=== PATIENT | male | born 1955 | race African-American/Black ===

== ENCOUNTER 2017-03-18 04:00 | Emergency (ER) | payer MEDICAID, OTHER ==
[2017-03-18] MEDS ORDERED: Ketorolac 60 MG/2 ML SDV IM ONE (04:17)
[2017-03-18] MEDS ORDERED: Doxycycline 100 MG Cap PO ONE (04:18)
[2017-03-18] MEDS ORDERED: Ketorolac 60 MG/2 ML SDV ONE (04:20)
--- NOTE | 2017-03-18 04:53 | EDM.PDOC ---
ED HPI GENERAL MEDICAL PROBLEM - General Chief Complaint: Skin Complaint Stated Complaint: BACK PAIN Time Seen by Provider: 03/18/17 04:25 Source of Information: Reports: Patient History Limitations: Reports: No Limitations - History of Present Illness INITIAL COMMENTS - FREE TEXT/NARRATIVE: HISTORY AND PHYSICAL: History of present illness: [61-year-old male Now presents emergency department complaining of pilonidal cyst. Patient has a long history of intermittent pilonidal cysts. This is been evolving over several days. Patient has no fevers chills sweats or shaking chills. He does not want any attempt to drain it but instead is requesting antibiotic treatment as he says this usually helps resolve. No headache or stiff neck no chest pain or shortness of breath patient has no other complaints Review of systems: As per history of present illness and below otherwise all systems reviewed and negative. Past medical history: As per history of present illness and as reviewed below otherwise noncontributory. Surgical history: As per history of present illness and as reviewed below otherwise noncontributory. Social history: No reported history of drug or alcohol abuse. Family history: As per history of present illness and as reviewed below otherwise noncontributory. Physical exam: Well-appearing 61-year-old male no acute distress. Area of soft tissue tenderness left upper gluteal cleft margin no fluctuance or crepitus. No erythema or warmth. HEENT: Normocephalic, atraumatic, pupils normal and symmetrical, supple neck, no meningismus, normal color Lungs: Normal and symmetrical chest wall excursion bilateral with no tachypnea or increased work of breathing, grossly normal chest exam Heart: No tachycardia in triage Abdomen: Normal-appearing, nondistended, no visible mass or asymmetry Pelvis: Normal-appearing Genitourinary: Deferred Rectal exam: Deferred Extremities: Atraumatic, normal use and range of motion, no visible evidence of gross neurovascular compromise Neuro: Awake, alert, oriented. Normal and appropriate mental status. Cranial nerves grossly unremarkable. Motor function normal. Nonfocal neurologic exam. Diagnostics: [] Therapeutics: [Toradol given IM doxycycline administered by mouth] Impression: [Pilonidal cyst] Plan: [Patient with pilonidal cyst. He is refusing any incision and drainage but she does not think this is necessary and states he typically does well with antibiotics and soaks. Doxycycline administered in ED and prescription dispensed. Patient aware to follow-up with primary care doctor in one to 2 days for reevaluation and to arrange surgical treatment this becomes necessary. He agrees with outpatient follow-up and strict return precautions given] Definitive disposition and diagnosis as appropriate pending reevaluation and review of above. Sacral Pain Score (Numeric/FACES): 8 - Related Data Allergies Allergy/AdvReac Type Severity Reaction Status Date / Time No Known Allergies Allergy Verified 03/18/17 04:16 Home Meds: Home Meds Aspirin [Low Dose Aspirin EC] 81 mg PO BEDTIME 08/25/14 [History] Aspirin 325 mg PO DAILY 03/18/17 [History] Carbidopa/Levodopa [Sinemet 10-100 mg] 0 03/18/17 [History] Doxycycline [Vibramycin] 100 mg PO Q12HR #20 cap 03/18/17 [Rx] Past Medical History - Past Health History Medical/Surgical History: Denies Medical/Surgical History Cardiovascular History: Reports: High Cholesterol, Hypertension, [place] Gastrointestinal History: Reports: GERD Endocrine/Metabolic History: Reports: Diabetes, Type I Dermatologic History: Reports: Other (See Below) Other Dermatologic History: pilonital cysts Social & Family History - Family History Family Medical History: Noncontributory - Tobacco Use Smoking Status *Q: Light Tobacco Smoker Years of Tobacco use: 30 Packs/Tins Daily: 0.1 Used Tobacco, but Quit: No Second Hand Smoke Exposure: No - Caffeine Use Caffeine Use: Reports: Coffee, Soda, Tea Caffeine Use Comment: daily - Alcohol Use Days Per Week of Alcohol Use: 2 Number of Drinks Per Day: 2 Total Drinks Per Week: 4 - Recreational Drug Use Recreational Drug Use: Yes Drug Use in Last 12 Months: Yes Recreational Drug Type: Reports: Marijuana/Hashish Recreational Drug Use Frequency: Socially Recreational Drug Last Use: 2 days ago ED ROS GENERAL - Review of Systems Review Of Systems: See Below (History of present illness) ED EXAM, SKIN/RASH Exam: See Below (History of present illness) Course - Vital Signs Last Recorded V/S: Last Vital Signs Temp 36.6 C 03/18/17 05:04 Pulse 70 03/18/17 05:04 Resp 18 03/18/17 05:04 BP 160/92 H 03/18/17 05:04 Pulse Ox 98 03/18/17 05:04 - Orders/Labs/Meds Meds: Medications Discontinued Medications Generic Name Dose Route Start Last Admin Trade Name Mark PRN Reason Stop Dose Admin Doxycycline Hyclate 100 mg 03/18/17 04:18 03/18/17 04:27 Vibramycin PO 03/18/17 04:19 100 mg ONETIME ONE Administration Ketorolac Tromethamine 60 mg 03/18/17 04:17 03/18/17 04:22 Toradol IM 03/18/17 04:18 60 mg ONETIME ONE Administration Ketorolac Tromethamine Confirm 03/18/17 04:20 03/18/17 04:28 Toradol Administered 03/18/17 04:21 Not Given Dose 60 mg .ROUTE .STK-MED ONE Departure - Departure Time of Disposition: 04:50 Disposition: Home, Self-Care 01 Condition: Good Clinical Impression: Pilonidal cyst - Discharge Information Prescriptions: Doxycycline [Vibramycin] 100 mg PO Q12HR #20 cap Instructions: How to Take a Sitz Bath Referrals: PCP,None [Primary Care Provider] - Forms: ED Department Discharge Additional Instructions: As you know you have a pilonidal cyst. Do warm soaks and finish antibiotics as prescribed. Follow-up with your Dr. for reevaluation in one day and to arrange incision and drainage of this becomes necessary. Take ibuprofen 800 mg every 6 hours as well as Tylenol every 4 hours as needed for pain.
[2017-03-18 05:09] VITALS: BP 160/92
== END 2017-03-18 05:04 | disposition home or self-care (01) ==
LOC: MW.ED 04:00
DX: L05.91 Pilonidal cyst without abscess (principal); E78.00 Pure hypercholesterolemia, unspecified; I10 Essential (primary) hypertension; I25.2 Old myocardial infarction; K21.9 Gastro-esophageal reflux disease without esophagitis; E10.9 Type 1 diabetes mellitus without complications; F17.210 Nicotine dependence, cigarettes, uncomplicated; Z79.82 Long term (current) use of aspirin
CPT/HCPCS: 99282; A9270; J1885

== ENCOUNTER 2017-06-01 09:42 | Observation (INO) | payer MEDICAID ==
[2017-06-01] MEDS ORDERED: Sodium Chloride 0.9% 1,000 ML IV ONE (09:47)
[2017-06-01] MEDS ORDERED: Aspirin 81 MG Tab.Chew PO ONE (09:47)
--- NOTE | 2017-06-01 09:49 | EDM.PDOC ---
ED HPI GENERAL MEDICAL PROBLEM - General Stated Complaint: LEFT SIDE NUMBNESS Time Seen by Provider: 06/01/17 09:49 Source of Information: Reports: Patient - History of Present Illness INITIAL COMMENTS - FREE TEXT/NARRATIVE: HISTORY AND PHYSICAL: History of present illness: []Patient presents to emergency room by private vehicle Has complaint of left arm numbness and chest discomfort, he has significant cardiac history of previous ST elevation [place] in which he refused cardiac catheter on that occasion however he returned some months later in [facility] and was converted ultimately sent to [place] where ultimately cardiac catheter was performed. Today he is in no distress no shortness breath he complains of chest discomfort left arm numbness his blood pressure on arrival was in the 220s systolically as well as 120s diastolic, is provided nitroglycerin 2 doses which improved his symptoms to a 3 out of 10 pain his blood pressure to 160s systolically to 114 diastolic. Vasotec was also provided Currently no fever nausea vomiting chills sweats he still complains of left arm numbness Glucose significantly elevated at 600 on arrival IV normal saline provided along with insulin Review of systems: As per history of present illness and below otherwise all systems reviewed and negative. Past medical history: As per history of present illness and as reviewed below otherwise noncontributory. Surgical history: As per history of present illness and as reviewed below otherwise noncontributory. Social history: No reported history of drug or alcohol abuse. Family history: As per history of present illness and as reviewed below otherwise noncontributory. Physical exam: HEENT: Atraumatic, normocephalic, pupils reactive, negative for conjunctival pallor or scleral icterus, mucous membranes moist, throat clear, neck supple, nontender, trachea midline. Lungs: Clear to auscultation, breath sounds equal bilaterally, chest nontender. Heart: S1S2, regular, negative for clicks, rubs, or JVD. Abdomen: Soft, nondistended, nontender. Negative for masses or hepatosplenomegaly. Negative for costovertebral tenderness. Pelvis: Stable nontender. Genitourinary: Deferred. Rectal: Deferred. Extremities: Atraumatic, negative for cords or calf pain. Neurovascular unremarkable. Neuro: Awake, alert, oriented. Cranial nerves II through XII unremarkable. Cerebellum unremarkable. Motor and sensory unremarkable throughout. Exam nonfocal. Diagnostics: [Lab as below EKG Chest [address] no contrast ] Therapeutics: [Liter normal saline bolus Aspirin 324 mg chewable Sublingual nitroglycerin 0.4 every 5 when necessary 30 Vasotec 1.25 mg IV Insulin 10 units IV ] Impression: ACS Hypertensive emergency Hyperglycemia []Left arm numbness Hyperglycemia Significant cardiac history history with catheterization in the last 2 years, history of STEMI and V. fib Refused cardiac catheterization in the past ultimately was performed between one and 2 years prior Definitive disposition and diagnosis as appropriate pending reevaluation and review of above. chest Pain Score (Numeric/FACES): 10 - Related Data Allergies Allergy/AdvReac Type Severity Reaction Status Date / Time No Known Allergies Allergy Verified 06/01/17 10:20 Home Meds: Home Meds Aspirin [Low Dose Aspirin EC] 81 mg PO BEDTIME 08/25/14 [History] Aspirin 325 mg PO DAILY 03/18/17 [History] Carbidopa/Levodopa [Sinemet 10-100 mg] 0 03/18/17 [History] Doxycycline [Vibramycin] 100 mg PO Q12HR #20 cap 03/18/17 [Rx] Past Medical History - Past Health History Medical/Surgical History: Denies Medical/Surgical History Cardiovascular History: Reports: High Cholesterol, Hypertension, [place] Gastrointestinal History: Reports: GERD Endocrine/Metabolic History: Reports: Diabetes, Type I Dermatologic History: Reports: Other (See Below) Other Dermatologic History: pilonital cysts Social & Family History - Family History Family Medical History: Noncontributory - Tobacco Use Smoking Status *Q: Light Tobacco Smoker Years of Tobacco use: 30 Packs/Tins Daily: 0.1 Used Tobacco, but Quit: No Second Hand Smoke Exposure: No - Caffeine Use Caffeine Use: Reports: Coffee, Soda, Tea Caffeine Use Comment: daily - Alcohol Use Days Per Week of Alcohol Use: 2 Number of Drinks Per Day: 2 Total Drinks Per Week: 4 - Recreational Drug Use Recreational Drug Use: Yes Drug Use in Last 12 Months: Yes Recreational Drug Type: Reports: Marijuana/Hashish Recreational Drug Use Frequency: Socially Recreational Drug Last Use: 2 days ago ED ROS GENERAL - Review of Systems Review Of Systems: ROS reveals no pertinent complaints other than HPI. ED EXAM, GENERAL - Physical Exam Exam: See Below Course - Vital Signs Last Recorded V/S: Last Vital Signs Temp 98.6 F 06/01/17 10:00 Pulse 97 06/01/17 11:06 Resp 16 06/01/17 11:06 BP 164/114 H 06/01/17 11:06 Pulse Ox 97 06/01/17 11:06 - Orders/Labs/Meds Orders: Active Orders 24 hr Category Date Time Status EKG Documentation Completion [RC] STAT Care 06/01/17 10:28 Active Chest 1V Frontal [CR] Stat Exams 06/01/17 09:49 Taken Head wo Cont [CT] Stat Exams 06/01/17 10:45 Taken Nitroglycerin [Nitrostat] Med 06/01/17 10:08 Active 0.4 mg SL Q5M PRN Medication Orders Nitroglycerin (Nitrostat) 0.4 mg SL Q5M PRN PRN Reason: Chest Pain Last Admin: 06/01/17 10:11 Dose: 0.4 mg Labs: Laboratory Tests 06/01/17 06/01/17 06/01/17 Range/Units 10:02 10:02 10:02 WBC 6.17 (4.0-11.0) K/uL RBC 4.77 (4.50-5.90) M/uL Hgb 14.5 (13.0-17.0) g/dL Hct 42.7 (38.0-50.0) % MCV 89.5 (80.0-98.0) fL MCH 30.4 (27.0-32.0) pg MCHC 34.0 (31.0-37.0) g/dL RDW Std Deviation 44.9 (28.0-62.0) fl RDW Coeff of Arlet 14 (11.0-15.0) % Plt Count 226 (150-400) K/uL MPV 10.50 (7.40-12.00) fL Neut % (Auto) 55.4 (48.0-80.0) % Lymph % (Auto) 34.5 (16.0-40.0) % [place] % (Auto) 7.6 (0.0-15.0) % Eos % (Auto) 2.3 (0.0-7.0) % Baso % (Auto) 0.2 (0.0-1.5) % Neut # (Auto) 3.4 (1.4-5.7) K/uL Lymph # (Auto) 2.1 (0.6-2.4) K/uL [place] # (Auto) 0.5 (0.0-0.8) K/uL Eos # (Auto) 0.1 (0.0-0.7) K/uL Baso # (Auto) 0.0 (0.0-0.1) K/uL Nucleated RBC % 0.0 /100WBC Nucleated RBCs # 0 K/uL INR 1.05 (0.86-1.11) Sodium 133 L (136-146) mmol/L Potassium 3.8 (3.5-5.1) mmol/L Chloride 99 (98-110) mmol/L Carbon Dioxide 22 (21-31) mmol/L BUN 10 (6.0-23.0) mg/dL Creatinine 1.2 (0.6-1.5) mg/dL Est Cr Clr Drug Dosing 72.75 mL/min Estimated GFR (MDRD) > 60.0 ml/min Glucose 599 H* (60-110) mg/dL POC Glucose (60-110) mg/dL Calcium 9.9 (8.8-10.8) mg/dL Total Bilirubin 0.4 (0.1-1.5) mg/dL AST 37 (5-40) IU/L ALT 64 H (8-54) IU/L Alkaline Phosphatase 121 (40-150) Creatine Kinase 90 (9-236) IU/L CK-MB (CK-2) 1.7 (0-6.6) ng/ml Troponin I < 0.10 (0.0-0.29) NG/ML Total Protein 7.6 (6.0-8.0) g/dL Albumin 3.5 (3.5-5.0) g/dL Globulin 4.1 H (2.0-3.5) g/dL Albumin/Globulin Ratio 0.9 L (1.3-2.8) Urine Color Urine Appearance Urine pH (5.0-8.0) Ur Specific [place] (1.001-1.035) Urine Protein (NEGATIVE) mg/dL Urine Glucose (UA) (NEGATIVE) mg/dL Urine Ketones (NEGATIVE) mg/dL Urine Occult Blood (NEGATIVE) Urine Nitrite (NEGATIVE) Urine Bilirubin (NEGATIVE) Urine Urobilinogen (<2.0) EU/dL Ur Leukocyte Esterase (NEGATIVE) Urine RBC (0-2/HPF) Urine WBC (0-5/HPF) Ur Epithelial Cells (NONE-FEW) Urine Bacteria (NEGATIVE) 06/01/17 06/01/17 Range/Units 11:00 11:36 WBC (4.0-11.0) K/uL RBC (4.50-5.90) M/uL Hgb (13.0-17.0) g/dL Hct (38.0-50.0) % MCV (80.0-98.0) fL MCH (27.0-32.0) pg MCHC (31.0-37.0) g/dL RDW Std Deviation (28.0-62.0) fl RDW Coeff of Arlet (11.0-15.0) % Plt Count (150-400) K/uL MPV (7.40-12.00) fL Neut % (Auto) (48.0-80.0) % Lymph % (Auto) (16.0-40.0) % [place] % (Auto) (0.0-15.0) % Eos % (Auto) (0.0-7.0) % Baso % (Auto) (0.0-1.5) % Neut # (Auto) (1.4-5.7) K/uL Lymph # (Auto) (0.6-2.4) K/uL [place] # (Auto) (0.0-0.8) K/uL Eos # (Auto) (0.0-0.7) K/uL Baso # (Auto) (0.0-0.1) K/uL Nucleated RBC % /100WBC Nucleated RBCs # K/uL INR (0.86-1.11) Sodium (136-146) mmol/L Potassium (3.5-5.1) mmol/L Chloride (98-110) mmol/L Carbon Dioxide (21-31) mmol/L BUN (6.0-23.0) mg/dL Creatinine (0.6-1.5) mg/dL Est Cr Clr Drug Dosing mL/min Estimated GFR (MDRD) ml/min Glucose (60-110) mg/dL POC Glucose 290 H (60-110) mg/dL Calcium (8.8-10.8) mg/dL Total Bilirubin (0.1-1.5) mg/dL AST (5-40) IU/L ALT (8-54) IU/L Alkaline Phosphatase (40-150) Creatine Kinase (9-236) IU/L CK-MB (CK-2) (0-6.6) ng/ml Troponin I (0.0-0.29) NG/ML Total Protein (6.0-8.0) g/dL Albumin (3.5-5.0) g/dL Globulin (2.0-3.5) g/dL Albumin/Globulin Ratio (1.3-2.8) Urine Color YELLOW Urine Appearance CLEAR Urine pH 6.0 (5.0-8.0) Ur Specific [place] 1.010 (1.001-1.035) Urine Protein NEGATIVE (NEGATIVE) mg/dL Urine Glucose (UA) >=1000 (NEGATIVE) mg/dL Urine Ketones NEGATIVE (NEGATIVE) mg/dL Urine Occult Blood NEGATIVE (NEGATIVE) Urine Nitrite NEGATIVE (NEGATIVE) Urine Bilirubin NEGATIVE (NEGATIVE) Urine Urobilinogen 0.2 (<2.0) EU/dL Ur Leukocyte Esterase NEGATIVE (NEGATIVE) Urine RBC NONE SEEN (0-2/HPF) Urine WBC 0-1 (0-5/HPF) Ur Epithelial Cells RARE (NONE-FEW) Urine Bacteria RARE (NEGATIVE) Meds: Medications Generic Name Dose Route Start Last Admin Trade Name Mark PRN Reason Stop Dose Admin Nitroglycerin 0.4 mg 06/01/17 10:08 06/01/17 10:11 Nitrostat SL 0.4 mg Q5M PRN Administration Chest Pain Discontinued Medications Generic Name Dose Route Start Last Admin Trade Name Mark PRN Reason Stop Dose Admin Aspirin 324 mg 06/01/17 09:47 06/01/17 10:11 Aspirin PO 06/01/17 09:48 324 mg ONETIME ONE Administration Enalaprilat 1.25 mg 06/01/17 10:21 06/01/17 10:25 Vasotec Iv IVPUSH 06/01/17 10:22 1.25 mg ONETIME ONE Administration Sodium Chloride 1,000 mls @ 999 mls/hr 06/01/17 09:47 06/01/17 10:17 Normal Saline IV 06/01/17 10:47 999 mls/hr STAT ONE Administration Insulin Human Regular 10 unit 06/01/17 10:35 06/01/17 10:54 Novolin R IVPUSH 06/01/17 10:36 10 units ONETIME ONE Administration Protocol Insulin Human Regular 10 unit 06/01/17 10:38 06/01/17 10:56 Novolin R IVPUSH 06/01/17 10:39 Not Given ONETIME ONE Protocol Metoprolol Tartrate 5 mg 06/01/17 10:30 06/01/17 11:13 Lopressor IVPUSH 06/01/17 10:41 Not Given Q5M GORDON Nitroglycerin Confirm 06/01/17 10:08 06/01/17 10:16 Nitrostat Administered 06/01/17 10:09 0.4 mg Dose Administration 0.4 mg .ROUTE .STK-MED ONE Departure - Departure Time of Disposition: 11:53 Disposition: Home, Self-Care 01 Condition: Fair Clinical Impression: Acute coronary syndrome, Hypertensive emergency, Hyperglycemia - Discharge Information Referrals: PCP,Unknown [Primary Care Provider] - - My Orders Last 24 Hours: My Active Orders 06/01/17 09:49 Chest 1V Frontal [CR] Stat 06/01/17 10:08 Nitroglycerin [Nitrostat] 0.4 mg SL Q5M PRN 06/01/17 10:28 EKG Documentation Completion [RC] STAT 06/01/17 10:45 Head wo Cont [CT] Stat - Assessment/Plan Last 24 Hours: My Active Orders 06/01/17 09:49 Chest 1V Frontal [CR] Stat 06/01/17 10:08 Nitroglycerin [Nitrostat] 0.4 mg SL Q5M PRN 06/01/17 10:28 EKG Documentation Completion [RC] STAT 06/01/17 10:45 Head wo Cont [CT] Stat
[2017-06-01] MEDS ORDERED: Nitroglycerin 0.4 MG Tab.SL SL PRN (10:08)
[2017-06-01] MEDS ORDERED: Nitroglycerin 0.4 MG Tab.SL ONE (10:08)
[2017-06-01] MEDS ORDERED: Enalaprilat 1.25 MG/ML SDV IVPUSH ONE (10:21)
[2017-06-01 10:33] LABS: CHLORIDE,CL 99 mmol/L (98-110); SODIUM,NA 133 mmol/L (136-146)
[2017-06-01] MEDS ORDERED: Insulin Regular, Human 100 Units/ML 10 ML Vial IVPUSH ONE ×2 (10:35→10:38)
[2017-06-01] MEDS: Metoprolol Tartrate 5 MG/5 ML SDV IVPUSH SCH ×2 (11:12→11:13)
[2017-06-01] MEDS ORDERED: Morphine 2 MG/ML Syringe IVPUSH PRN (15:03)
[2017-06-01] MEDS ORDERED: Acetaminophen 325 MG Tab PO PRN (15:03)
[2017-06-01] MEDS ORDERED: Ondansetron 4 MG/2 ML SDV IVPUSH PRN (15:03)
--- NOTE | 2017-06-01 15:12 | PCM.HP ---
H&P History of Present Illness - History of Present Illness Initial Comments - Free Text/Narative: 61 yo male with pmh of HTN, DM, and CAD with STEMI three years ago. He is unemployed and stopped taking all his medications six months ago. He presents to the ED with chest pain. HE reports left shoulder pain for past week which radiates to the neck. It hurts to lift up his shoulder. Three days ago he developed chest pain that radiates to head and left arm. It is not associated with shortness of breath, diaphoresis, or lightheadedness. In the ED his troponin and EKG did not show signs of acute ischemia. His blood pressure was noted to be in the 200s systolic and blood sugar was over 500. He was given IV vasotec and 10 units of insulin. chest Pain Score (Numeric/FACES): 10 - Related Data Allergies/Adverse Reactions: Allergies Allergy/AdvReac Type Severity Reaction Status Date / Time No Known Allergies Allergy Verified 06/01/17 10:20 Home Medications: Home Meds . [No Known Home Meds] 06/01/17 [History] Past Medical History - Past Health History Medical/Surgical History: Denies Medical/Surgical History Cardiovascular History: Reports: High Cholesterol, Hypertension, [place] Gastrointestinal History: Reports: GERD Endocrine/Metabolic History: Reports: Diabetes, Type I Dermatologic History: Reports: Other (See Below) Other Dermatologic History: pilonital cysts - Past Surgical History Cardiovascular Surgical History: Reports: Coronary Artery Stent Social & Family History - Family History Family Medical History: Noncontributory - Tobacco Use Smoking Status *Q: Current Every Day Smoker Years of Tobacco use: 25 Packs/Tins Daily: 0.5 Used Tobacco, but Quit: No Second Hand Smoke Exposure: No - Caffeine Use Caffeine Use: Reports: Coffee, Soda, Tea Caffeine Use Comment: daily - Alcohol Use Days Per Week of Alcohol Use: 2 Number of Drinks Per Day: 2 Total Drinks Per Week: 4 - Recreational Drug Use Recreational Drug Use: Yes Drug Use in Last 12 Months: Yes Recreational Drug Type: Reports: Marijuana/Hashish Recreational Drug Use Frequency: Socially Recreational Drug Last Use: 2 days ago H&P Review of Systems - Review of Systems: Review Of Systems: ROS reveals no pertinent complaints other than HPI. Exam - Exam Exam: See Below - Vital Signs Vital Signs: Last Vital Signs Temp 36.6 C 06/01/17 12:36 Pulse 75 06/01/17 12:36 Resp 16 06/01/17 12:36 BP 142/85 H 06/01/17 12:36 Pulse Ox 98 06/01/17 12:36 Weight: 108.499 kg - Exam General: Alert, Oriented HEENT: Mucosa Moist & [place] Neck: No: JVD Lungs: Clear to Auscultation, Normal Respiratory Effort Cardiovascular: Regular Rate, Regular Rhythm GI/Abdominal Exam: Soft, Non-Tender, No Distention Extremities: No Pedal Edema, Other (pain on palpation of shoulder joint and para cervical muscles. limited left arm raise due to pain.) Skin: Warm, Dry, Intact Neurological: Cranial Nerves Intact. No: Focal Deficit - Patient Data Result Diagrams: 06/02/17 06:00 06/01/17 10:02 *Q Meaningful Use (ADM) - VTE *Q VTE Criteria *Q: - Stroke *Q Stroke Criteria *Q: - AMI *Q AMI Criteria *Q: Problem List Initiated/Reviewed/Updated: Yes Orders Last 24hrs: Active Orders 24 hr Category Date Time Status Antiembolic Devices [RC] PER UNIT ROUTINE Care 06/01/17 15:04 Ordered Oxygen Therapy [RC] PRN Care 06/01/17 15:03 Ordered Up ad Awilda [RC] ASDIRECTED Care 06/01/17 15:03 Ordered VTE/DVT Education [RC] PER UNIT ROUTINE Care 06/01/17 15:03 Ordered Vital Signs [RC] Q4H Care 06/01/17 15:03 Ordered [employer] Diet [DIET] Diet 06/01/17 Dinner Active Regular Diet [DIET] Diet 06/01/17 Breakfast Ordered TROPONIN I [CHEM] Q6H Lab 06/01/17 16:00 Ordered TROPONIN I [CHEM] Q6H Lab 06/01/17 22:00 Ordered Acetaminophen [Tylenol] Med 06/01/17 15:03 Ordered 650 mg PO Q4H PRN Aspirin Med 06/02/17 09:00 Ordered 325 mg PO DAILY Insulin Aspart [NovoLOG] Med 06/01/17 17:00 Active See Protocol SUBCUT TIDAC Lisinopril [Prinivil] Med 06/02/17 09:00 Ordered 20 mg PO DAILY Metoprolol Succinate [Toprol XL] Med 06/01/17 15:00 Ordered 50 mg PO DAILY Morphine Med 06/01/17 15:03 Ordered 2 mg IVPUSH Q3H PRN Ondansetron [Zofran] Med 06/01/17 15:03 Ordered 4 mg IVPUSH Q4H PRN atorvaSTATin [Lipitor] Med 06/01/17 21:00 Ordered 20 mg PO BEDTIME Sequential Compression Device [OM.PC] Per Unit Routine Oth 06/01/17 15:03 Ordered Resuscitation Status Routine Resus Stat 06/01/17 15:03 Ordered Medication Orders Acetaminophen (Tylenol) 650 mg PO Q4H PRN PRN Reason: Pain (Mild 1-3)/fever Aspirin (Aspirin) 325 mg PO DAILY GORDON Atorvastatin Calcium (Lipitor) 20 mg PO BEDTIME GORDON Insulin Aspart (Novolog) 0 unit SUBCUT TIDAC GORDON PRN Reason: Protocol Lisinopril (Prinivil) 20 mg PO DAILY GORDON Metoprolol Succinate (Toprol Xl) 50 mg PO DAILY GORDON Morphine Sulfate (Morphine) 2 mg IVPUSH Q3H PRN PRN Reason: Pain (severe 7-10) Stop: 06/02/17 15:04 Nitroglycerin (Nitrostat) 0.4 mg SL Q5M PRN PRN Reason: Chest Pain Last Admin: 06/01/17 10:11 Dose: 0.4 mg Ondansetron HCl (Zofran) 4 mg IVPUSH Q4H PRN PRN Reason: Nausea Assessment/Plan Comment:: 61 yo male admitted for chest pain with uncontrolled blood pressure and hyperglycemia. We will monitor on telemetry and trend cardiac enzymes. We will restart metoprolol, lisinopril and lipitor which he had been taking six months ago. We will place on diabetic diet with sliding scale novolog.
[2017-06-01] MEDS: Metoprolol Succinate 50 MG Tab.ER PO SCH (15:13)
[2017-06-01] MEDS ORDERED: Insulin Aspart 100 Units/ML 3 ML Pen SUBCUT SCH (17:00)
[2017-06-01] MEDS: Lisinopril 10 MG Tab PO SCH (20:58)
[2017-06-01] MEDS: oxyCODONE 5 MG Tab PO PRN (20:59)
[2017-06-01] MEDS: atorvaSTATin 20 MG Tab PO SCH (20:59)
[2017-06-01] MEDS: Insulin Aspart 100 Units/ML 3 ML Pen SUBCUT SCH (21:07)
[2017-06-02] MEDS: oxyCODONE 5 MG Tab PO PRN ×4 (06:23→21:21)
[2017-06-02] MEDS: Insulin Aspart 100 Units/ML 3 ML Pen SUBCUT SCH ×4 (07:41→21:04)
[2017-06-02] MEDS: Aspirin 325 MG Tab PO SCH (08:21)
[2017-06-02] MEDS: Metoprolol Succinate 50 MG Tab.ER PO SCH (08:21)
[2017-06-02] MEDS: Lisinopril 10 MG Tab PO SCH (08:22)
[2017-06-02] MEDS ORDERED: Lisinopril 10 MG Tab PO SCH (09:00)
[2017-06-02] MEDS ORDERED: Insulin Aspart 100 Units/ML 3 ML Pen SUBCUT ONE (11:27)
[2017-06-02 12:23] LABS: CHLORIDE,CL 104 mmol/L (98-110); SODIUM,NA 133 mmol/L (136-146)
--- NOTE | 2017-06-02 12:34 | PCM.PN ---
- Review of Systems Systems Review Comment:: denies chest pain, reports left shoulder pain - Patient Data Vitals - Most Recent: Last Vital Signs Temp 36.1 C 06/02/17 11:12 Pulse 68 06/02/17 11:12 Resp 20 06/02/17 11:12 BP 122/71 06/02/17 11:12 Pulse Ox 100 06/02/17 11:12 Weight - Most Recent: 108.499 kg I&O - Last 24 Hours: Intake & Output 06/01/17 06/02/17 06/02/17 22:59 06:59 14:59 Intake Total 970 1570 Output Total 500 1565 Balance 470 5 Lab Results Last 24 Hours: Laboratory Results - last 24 hr 06/01/17 06/01/17 06/01/17 Range/Units 15:47 16:48 21:03 WBC (4.0-11.0) K/uL RBC (4.50-5.90) M/uL Hgb (13.0-17.0) g/dL Hct (38.0-50.0) % MCV (80.0-98.0) fL MCH (27.0-32.0) pg MCHC (31.0-37.0) g/dL RDW Std Deviation (28.0-62.0) fl RDW Coeff of Arlet (11.0-15.0) % Plt Count (150-400) K/uL MPV (7.40-12.00) fL Neut % (Auto) (48.0-80.0) % Lymph % (Auto) (16.0-40.0) % Dickens % (Auto) (0.0-15.0) % Eos % (Auto) (0.0-7.0) % Baso % (Auto) (0.0-1.5) % Neut # (Auto) (1.4-5.7) K/uL Lymph # (Auto) (0.6-2.4) K/uL Dickens # (Auto) (0.0-0.8) K/uL Eos # (Auto) (0.0-0.7) K/uL Baso # (Auto) (0.0-0.1) K/uL Nucleated RBC % /100WBC Nucleated RBCs # K/uL POC Glucose 279 H 330 H (60-110) mg/dL Hemoglobin A1c (0.0-6.0) % Troponin I < 0.10 (0.0-0.29) NG/ML 06/01/17 06/02/17 06/02/17 Range/Units 21:59 06:00 06:00 WBC 6.99 (4.0-11.0) K/uL RBC 4.66 (4.50-5.90) M/uL Hgb 14.2 (13.0-17.0) g/dL Hct 41.4 (38.0-50.0) % MCV 88.8 (80.0-98.0) fL MCH 30.5 (27.0-32.0) pg MCHC 34.3 (31.0-37.0) g/dL RDW Std Deviation 44.4 (28.0-62.0) fl RDW Coeff of Arlet 14 (11.0-15.0) % Plt Count 229 (150-400) K/uL MPV 10.60 (7.40-12.00) fL Neut % (Auto) 45.1 L (48.0-80.0) % Lymph % (Auto) 45.1 H (16.0-40.0) % Dickens % (Auto) 6.3 (0.0-15.0) % Eos % (Auto) 3.1 (0.0-7.0) % Baso % (Auto) 0.4 (0.0-1.5) % Neut # (Auto) 3.2 (1.4-5.7) K/uL Lymph # (Auto) 3.2 H (0.6-2.4) K/uL Dickens # (Auto) 0.4 (0.0-0.8) K/uL Eos # (Auto) 0.2 (0.0-0.7) K/uL Baso # (Auto) 0.0 (0.0-0.1) K/uL Nucleated RBC % 0.0 /100WBC Nucleated RBCs # 0 K/uL POC Glucose (60-110) mg/dL Hemoglobin A1c 12.7 H (0.0-6.0) % Troponin I < 0.10 (0.0-0.29) NG/ML 06/02/17 06/02/17 Range/Units 06:17 11:22 WBC (4.0-11.0) K/uL RBC (4.50-5.90) M/uL Hgb (13.0-17.0) g/dL Hct (38.0-50.0) % MCV (80.0-98.0) fL MCH (27.0-32.0) pg MCHC (31.0-37.0) g/dL RDW Std Deviation (28.0-62.0) fl RDW Coeff of Arlet (11.0-15.0) % Plt Count (150-400) K/uL MPV (7.40-12.00) fL Neut % (Auto) (48.0-80.0) % Lymph % (Auto) (16.0-40.0) % Dickens % (Auto) (0.0-15.0) % Eos % (Auto) (0.0-7.0) % Baso % (Auto) (0.0-1.5) % Neut # (Auto) (1.4-5.7) K/uL Lymph # (Auto) (0.6-2.4) K/uL Dickens # (Auto) (0.0-0.8) K/uL Eos # (Auto) (0.0-0.7) K/uL Baso # (Auto) (0.0-0.1) K/uL Nucleated RBC % /100WBC Nucleated RBCs # K/uL POC Glucose 303 H 443 H (60-110) mg/dL Hemoglobin A1c (0.0-6.0) % Troponin I (0.0-0.29) NG/ML Med Orders - Current: Current Medications Acetaminophen (Tylenol) 650 mg PO Q4H PRN PRN Reason: Pain (Mild 1-3)/fever Last Admin: 06/01/17 20:12 Dose: 650 mg Aspirin (Aspirin) 325 mg PO DAILY [facility] Last Admin: 06/02/17 08:21 Dose: 325 mg Atorvastatin Calcium (Lipitor) 20 mg PO BEDTIME [facility] Last Admin: 06/01/17 20:59 Dose: 20 mg Insulin Aspart (Novolog) 0 unit SUBCUT ACBED [facility] PRN Reason: Protocol Last Admin: 06/02/17 11:34 Dose: Not Given Insulin Glargine (Lantus Solostar) 10 units SUBCUT DAILY [facility] Lisinopril (Prinivil) 20 mg PO DAILY [facility] Last Admin: 06/02/17 08:22 Dose: 20 mg Metoprolol Succinate (Toprol Xl) 50 mg PO DAILY [facility] Last Admin: 06/02/17 08:21 Dose: 50 mg Nitroglycerin (Nitrostat) 0.4 mg SL Q5M PRN PRN Reason: Chest Pain Last Admin: 06/01/17 10:11 Dose: 0.4 mg Ondansetron HCl (Zofran) 4 mg IVPUSH Q4H PRN PRN Reason: Nausea Oxycodone HCl (Oxycodone) 5 mg PO Q4H PRN PRN Reason: Pain Last Admin: 06/02/17 11:56 Dose: 5 mg Discontinued Medications Aspirin (Aspirin) 324 mg PO ONETIME ONE Stop: 06/01/17 09:48 Last Admin: 06/01/17 10:11 Dose: 324 mg Enalaprilat (Vasotec Iv) 1.25 mg IVPUSH ONETIME ONE Stop: 06/01/17 10:22 Last Admin: 06/01/17 10:25 Dose: 1.25 mg Sodium Chloride (Normal Saline) 1,000 mls @ 999 mls/hr IV STAT ONE Stop: 06/01/17 10:47 Last Admin: 06/01/17 10:17 Dose: 999 mls/hr Insulin Aspart (Novolog) 0 unit SUBCUT TIDAC [facility] PRN Reason: Protocol Last Admin: 06/01/17 17:24 Dose: 3 units Insulin Aspart (Novolog) 8 unit SUBCUT ONETIME ONE Stop: 06/02/17 11:28 Last Admin: 06/02/17 11:50 Dose: 8 units Insulin Human Regular (Novolin R) 10 unit IVPUSH ONETIME ONE PRN Reason: Protocol Stop: 06/01/17 10:36 Last Admin: 06/01/17 10:54 Dose: 10 units Insulin Human Regular (Novolin R) 10 unit IVPUSH ONETIME ONE PRN Reason: Protocol Stop: 06/01/17 10:39 Last Admin: 06/01/17 10:56 Dose: Not Given Lisinopril (Prinivil) 20 mg PO DAILY [facility] Metoprolol Tartrate (Lopressor) 5 mg IVPUSH Q5M [facility] Stop: 06/01/17 10:41 Last Admin: 06/01/17 11:13 Dose: Not Given Morphine Sulfate (Morphine) 2 mg IVPUSH Q3H PRN PRN Reason: Pain (severe 7-10) Stop: 06/02/17 15:04 Last Admin: 06/01/17 15:22 Dose: 2 mg Nitroglycerin (Nitrostat) Confirm Administered Dose 0.4 mg .ROUTE .STK-MED ONE Stop: 06/01/17 10:09 Last Admin: 06/01/17 10:16 Dose: 0.4 mg - Exam General: Alert, Oriented Lungs: Clear to Auscultation, Normal Respiratory Effort Cardiovascular: Regular Rate, Regular Rhythm GI/Abdominal Exam: Soft, Non-Tender Extremities: Other (left shoulder pain on movement but has full range of motion) - Problem List Review Problem List Initiated/Reviewed/Updated: Yes - My Orders Last 24 Hours: My Active Orders 06/01/17 12:49 Telemetry Monitoring [Cardiac Monitoring] [RC] Q8H 06/01/17 15:00 Metoprolol Succinate [Toprol XL] 50 mg PO DAILY 06/01/17 15:03 Up ad Awilda [RC] ASDIRECTED VTE/DVT Education [RC] PER UNIT ROUTINE Vital Signs [RC] Q4H Acetaminophen [Tylenol] 650 mg PO Q4H PRN Ondansetron [Zofran] 4 mg IVPUSH Q4H PRN Sequential Compression Device [OM.PC] Per Unit Routine Resuscitation Status Routine 06/01/17 15:04 Antiembolic Devices [RC] PER UNIT ROUTINE 06/01/17 20:44 oxyCODONE 5 mg PO Q4H PRN 06/01/17 21:00 Blood Glucose Check, Bedside [RC] QIDACANDBED Insulin Aspart [NovoLOG] See Protocol SUBCUT ACBED Lisinopril [Prinivil] 20 mg PO DAILY atorvaSTATin [Lipitor] 20 mg PO BEDTIME 06/01/17 Dinner [employer] [place] Diet [DIET] 06/02/17 06:00 BASIC METABOLIC PANEL,BMP [CHEM] Routine 06/02/17 09:00 Aspirin 325 mg PO DAILY 06/02/17 11:56 Shoulder Comp Lt [CR] Routine 06/02/17 11:57 Consult to Diabetic Nurse Specialist [CONS] Routine 06/02/17 12:30 Insulin Glarg,Human.Rec.Analog [LantUS Solostar] 10 units SUBCUT DAILY - Plan Plan:: 61 yo male admitted for chest pain with uncontrolled blood pressure and hyperglycemia. He has ruled out for acute coronary syndrome with serial negative cardiac enzymes. HTN: contune lisinopril and metoprolol DM: Will place on medium dose slidding scale and add lantus. Plan is to discharge tomorrow after family educator consult.
[2017-06-02] MEDS: Insulin Glargine,Human Rec. Analog 100 Units/ML 3 ML Pen SUBCUT SCH (16:27)
[2017-06-02] MEDS: atorvaSTATin 20 MG Tab PO SCH (21:02)
[2017-06-03] MEDS: Insulin Aspart 100 Units/ML 3 ML Pen SUBCUT SCH (07:12)
[2017-06-03] MEDS: oxyCODONE 5 MG Tab PO PRN (07:31)
[2017-06-03] MEDS: Aspirin 325 MG Tab PO SCH (08:02)
[2017-06-03] MEDS: Lisinopril 10 MG Tab PO SCH (08:02)
[2017-06-03] MEDS: Insulin Glargine,Human Rec. Analog 100 Units/ML 3 ML Pen SUBCUT SCH (08:03)
[2017-06-03] MEDS: Metoprolol Succinate 50 MG Tab.ER PO SCH (08:03)
[2017-06-03 08:04] VITALS: BP 160/98
[2017-06-03] MEDS ORDERED: Insulin Glargine,Human Rec. Analog 100 Units/ML 3 ML Pen SUBCUT STA (09:55)
--- NOTE | 2017-06-03 10:16 | PCM.DCSUM1 ---
Discharge Summary - Hospital Course Brief History: This 61 year old male with pmh of HTN, DM, and CAD with STEMI three years ago. He is unemployed and stopped taking all his medications six months ago. He presented to the ED with chest pain. He reports left shoulder pain for past week which radiates to the neck. It hurts to lift up his shoulder. Three days ago he developed chest pain that radiates to head and left arm. It is not associated with shortness of breath, diaphoresis, or lightheadedness. In the ED his troponin and EKG did not show signs of acute ischemia. His blood pressure was noted to be in the 200s systolic and blood sugar was over 500. He was given IV vasotec and 10 units of insulin. - Discharge Data Discharge Date: 06/03/17 Discharge Disposition: Home, Self-Care 01 Condition: Good - Patient Summary/Data Consults: Consultations 06/02/17 11:57 Consult to Diabetic Nurse Specialist [CONS] Routine - Patient Instructions Diet: Heart Healthy Diet, Diabetic Diet Activity: No Strenuous Activities Driving: Do Not Drive (no driving today after receiving narcotics) Showering/Bathing: May Shower Notify Provider of: Fever, Increased Pain, Swelling and Redness, Drainage, Nausea and/or Vomiting - Discharge Plan Prescriptions/Med Rec: Acetaminophen [Tylenol] 650 mg PO Q4H PRN #30 tablet PRN Reason: SHOULDER Pain Aspirin 325 mg PO DAILY #30 tablet atorvaSTATin [Lipitor] 20 mg PO BEDTIME #30 tablet Insulin Aspart [NovoLOG] See Protocol SUBCUT ACBED #1 box Insulin Glarg,Human.Rec.Analog [LantUS Solostar] 20 units SUBCUT DAILY #1 box Lisinopril [Prinivil] 20 mg PO BID #90 tablet Metoprolol Succinate [Toprol XL] 50 mg PO DAILY #30 tab.er Home Medications: Home Meds Acetaminophen [Tylenol] 650 mg PO Q4H PRN #30 tablet 06/03/17 [Rx] Aspirin 325 mg PO DAILY #30 tablet 06/03/17 [Rx] Insulin Aspart [NovoLOG] See Protocol SUBCUT ACBED #1 box 06/03/17 [Rx] Insulin Glarg,Human.Rec.Analog [LantUS Solostar] 20 units SUBCUT DAILY #1 box [Rx] Lisinopril [Prinivil] 20 mg PO BID #90 tablet 06/03/17 [Rx] Metoprolol Succinate [Toprol XL] 50 mg PO DAILY #30 tab.er 06/03/17 [Rx] atorvaSTATin [Lipitor] 20 mg PO BEDTIME #30 tablet 06/03/17 [Rx] Patient Handouts: Type 2 Diabetes Mellitus, Adult, Insulin Aspart injection, Metoprolol extended-release tablets, Nonspecific Chest Pain, [id number], Acetaminophen tablets or caplets, Atorvastatin tablets, Lisinopril tablets, Aspirin, ASA oral tablets, Insulin Glargine injection Referrals: [facility] [Outside] [facility] [Outside] Logan Resendiz MD [Physician] - 06/11/17 2:30 pm Raymond Patel MD [Physician] - 06/07/17 9:00 am Federica Corado PA [Physician Ip Counsel] - 06/12/17 8:15 am Cristy Guo RN [Registered Nurse] - 06/07/17 11:00 am - Discharge Summary/Plan Comment DC Time >30 min.: No Discharge Summary/Plan Comment: Admit diagnoses Chest pain Uncontrolled HTN Uncontrolled DM Medication non-compliance CAD Hx STEMI 3 years ago Discharge Diagnoses: HTN-improving DM Type 2- A1C 12.7 CAD Hx CAD with STEMI 3 years ago Hepatitis C from hx of illict drug use Non-compliance with medication regimen. Parker was admitted, troponins trended and monitor on telemetry. ACS ruled out. EKG revealed no acute ST segment changes. He was started on insulin, Lantus and Novolog SSI to decrease his blood sugars which started at 600 in the ED. They are now running 250-300s. His Lantus dose was increased to 20 units daily and Novolog aggressive SSI. He met with case management and manager of financial reporting this morning. He also met with nurses educator as well. We will restart all home medications he stopped 6-8 months ago, these include ASA, Lisinopril, Metoprolol, and Atorvastatin along with Lantus and Novolog for uncontrolled DM type 2. He is to follow up with PCP, Cardiology and Ortho for shoulder. He was eager to be discharged today, reported he likely wont order picker any medications due to cost. he was encouraged he needs to get these to prevent further cardiac issues including VT. He verbalized understanding, but reports he has no money. He was encouraged to take Tylenol for pain to his shoulder and avoid NSAIDs including ibuprofen, advil, motrin and aleve due to his cardiac history. Shoulder xray revealed lateral spurring of the acromion, no other osseus injury or fracture, joint spaces unremarkable and alignments anatomic. He is to return to ED or clinic if concerns should arise. - General Info Date of Service: 06/03/17 Subjective Update: reports feeling good today, having L shoulder pain still. Asking for pain patch because "pain is unbearable". Hurts with movement of L shoulder. No numbness or tingling. No chest pain or SOB. Functional Status: Reports: Pain Controlled (with narcotics), Tolerating Diet, Ambulating, Urinating - Review of Systems HEENT: Reports: No Symptoms Pulmonary: Reports: No Symptoms. Denies: Shortness of Breath Cardiovascular: Reports: No Symptoms. Denies: Chest Pain, Palpitations Gastrointestinal: Reports: No Symptoms. Denies: Abdominal Pain, Nausea, Vomiting Genitourinary: Reports: No Symptoms. Denies: Dysuria, Frequency, Burning Musculoskeletal: Reports: Shoulder Pain (L shoulder pain) Neurological: Reports: No Symptoms. Denies: Confusion Psychiatric: Reports: No Symptoms. Denies: Confusion - Patient Data Vitals - Most Recent: Last Vital Signs Temp 98.2 F 06/03/17 08:00 Pulse 67 06/03/17 08:03 Resp 18 06/03/17 08:00 BP 160/98 H 06/03/17 08:03 Pulse Ox 99 06/03/17 08:00 Weight - Most Recent: 108.499 kg I&O - Last 24 hours: Intake & Output 06/02/17 06/03/17 06/03/17 22:59 06:59 14:59 Intake Total 2120 820 Output Total 850 800 Balance 1270 20 Lab Results - Last 24 hrs: Laboratory Results - last 24 hr 06/02/17 06/02/17 06/02/17 Range/Units 06:00 06:00 11:22 WBC 6.99 (4.0-11.0) K/uL RBC 4.66 (4.50-5.90) M/uL Hgb 14.2 (13.0-17.0) g/dL Hct 41.4 (38.0-50.0) % MCV 88.8 (80.0-98.0) fL MCH 30.5 (27.0-32.0) pg MCHC 34.3 (31.0-37.0) g/dL RDW Std Deviation 44.4 (28.0-62.0) fl RDW Coeff of Arlet 14 (11.0-15.0) % Plt Count 229 (150-400) K/uL MPV 10.60 (7.40-12.00) fL Neut % (Auto) 45.1 L (48.0-80.0) % Lymph % (Auto) 45.1 H (16.0-40.0) % Posey % (Auto) 6.3 (0.0-15.0) % Eos % (Auto) 3.1 (0.0-7.0) % Baso % (Auto) 0.4 (0.0-1.5) % Neut # (Auto) 3.2 (1.4-5.7) K/uL Lymph # (Auto) 3.2 H (0.6-2.4) K/uL Posey # (Auto) 0.4 (0.0-0.8) K/uL Eos # (Auto) 0.2 (0.0-0.7) K/uL Baso # (Auto) 0.0 (0.0-0.1) K/uL Nucleated RBC % 0.0 /100WBC Nucleated RBCs # 0 K/uL Sodium 133 L (136-146) mmol/L Potassium 3.9 (3.5-5.1) mmol/L Chloride 104 (98-110) mmol/L Carbon Dioxide 22 (21-31) mmol/L BUN 12 (6.0-23.0) mg/dL Creatinine 0.8 (0.6-1.5) mg/dL Est Cr Clr Drug Dosing 109.13 mL/min Estimated GFR (MDRD) > 60.0 ml/min Glucose 322 H (60-110) mg/dL POC Glucose 443 H (60-110) mg/dL Calcium 9.6 (8.8-10.8) mg/dL 06/02/17 06/02/17 06/03/17 Range/Units 16:23 21:01 06:32 WBC (4.0-11.0) K/uL RBC (4.50-5.90) M/uL Hgb (13.0-17.0) g/dL Hct (38.0-50.0) % MCV (80.0-98.0) fL MCH (27.0-32.0) pg MCHC (31.0-37.0) g/dL RDW Std Deviation (28.0-62.0) fl RDW Coeff of Arlet (11.0-15.0) % Plt Count (150-400) K/uL MPV (7.40-12.00) fL Neut % (Auto) (48.0-80.0) % Lymph % (Auto) (16.0-40.0) % Posey % (Auto) (0.0-15.0) % Eos % (Auto) (0.0-7.0) % Baso % (Auto) (0.0-1.5) % Neut # (Auto) (1.4-5.7) K/uL Lymph # (Auto) (0.6-2.4) K/uL Posey # (Auto) (0.0-0.8) K/uL Eos # (Auto) (0.0-0.7) K/uL Baso # (Auto) (0.0-0.1) K/uL Nucleated RBC % /100WBC Nucleated RBCs # K/uL Sodium (136-146) mmol/L Potassium (3.5-5.1) mmol/L Chloride (98-110) mmol/L Carbon Dioxide (21-31) mmol/L BUN (6.0-23.0) mg/dL Creatinine (0.6-1.5) mg/dL Est Cr Clr Drug Dosing mL/min Estimated GFR (MDRD) ml/min Glucose (60-110) mg/dL POC Glucose 265 H 271 H 230 H (60-110) mg/dL Calcium (8.8-10.8) mg/dL Med Orders - Current: Current Medications Acetaminophen (Tylenol) 650 mg PO Q4H PRN PRN Reason: Pain (Mild 1-3)/fever Last Admin: 06/01/17 20:12 Dose: 650 mg Aspirin (Aspirin) 325 mg PO DAILY [facility] Last Admin: 06/03/17 08:02 Dose: 325 mg Atorvastatin Calcium (Lipitor) 20 mg PO BEDTIME [facility] Last Admin: 06/02/17 21:02 Dose: 20 mg Insulin Aspart (Novolog) 0 unit SUBCUT ACBED [facility] PRN Reason: Protocol Last Admin: 06/03/17 07:12 Dose: 4 units Insulin Glargine (Lantus Solostar) 10 units SUBCUT DAILY [facility] Last Admin: 06/03/17 08:03 Dose: 10 units Lisinopril (Prinivil) 20 mg PO BID [facility] Metoprolol Succinate (Toprol Xl) 50 mg PO DAILY [facility] Last Admin: 06/03/17 08:03 Dose: 50 mg Nitroglycerin (Nitrostat) 0.4 mg SL Q5M PRN PRN Reason: Chest Pain Last Admin: 06/01/17 10:11 Dose: 0.4 mg Ondansetron HCl (Zofran) 4 mg IVPUSH Q4H PRN PRN Reason: Nausea Oxycodone HCl (Oxycodone) 5 mg PO Q4H PRN PRN Reason: Pain Last Admin: 06/03/17 07:31 Dose: 5 mg Discontinued Medications Aspirin (Aspirin) 324 mg PO ONETIME ONE Stop: 06/01/17 09:48 Last Admin: 06/01/17 10:11 Dose: 324 mg Enalaprilat (Vasotec Iv) 1.25 mg IVPUSH ONETIME ONE Stop: 06/01/17 10:22 Last Admin: 06/01/17 10:25 Dose: 1.25 mg Sodium Chloride (Normal Saline) 1,000 mls @ 999 mls/hr IV STAT ONE Stop: 06/01/17 10:47 Last Admin: 06/01/17 10:17 Dose: 999 mls/hr Insulin Aspart (Novolog) 0 unit SUBCUT TIDAC [facility] PRN Reason: Protocol Last Admin: 06/01/17 17:24 Dose: 3 units Insulin Aspart (Novolog) 8 unit SUBCUT ONETIME ONE Stop: 06/02/17 11:28 Last Admin: 06/02/17 11:50 Dose: 8 units Insulin Glargine (Lantus Solostar) 10 units SUBCUT NOW STA Stop: 06/03/17 09:56 Last Admin: 06/03/17 10:13 Dose: 10 unit Insulin Human Regular (Novolin R) 10 unit IVPUSH ONETIME ONE PRN Reason: Protocol Stop: 06/01/17 10:36 Last Admin: 06/01/17 10:54 Dose: 10 units Insulin Human Regular (Novolin R) 10 unit IVPUSH ONETIME ONE PRN Reason: Protocol Stop: 06/01/17 10:39 Last Admin: 06/01/17 10:56 Dose: Not Given Lisinopril (Prinivil) 20 mg PO DAILY [facility] Lisinopril (Prinivil) 20 mg PO DAILY [facility] Last Admin: 06/03/17 08:02 Dose: 20 mg Metoprolol Tartrate (Lopressor) 5 mg IVPUSH Q5M [facility] Stop: 06/01/17 10:41 Last Admin: 06/01/17 11:13 Dose: Not Given Morphine Sulfate (Morphine) 2 mg IVPUSH Q3H PRN PRN Reason: Pain (severe 7-10) Stop: 06/02/17 15:04 Last Admin: 06/01/17 15:22 Dose: 2 mg Nitroglycerin (Nitrostat) Confirm Administered Dose 0.4 mg .ROUTE .STK-MED ONE Stop: 06/01/17 10:09 Last Admin: 06/01/17 10:16 Dose: 0.4 mg - Exam General: Reports: Alert, Oriented, Cooperative, No Acute Distress Lungs: Reports: Clear to Auscultation, Normal Respiratory Effort Cardiovascular: Reports: Regular Rate, Regular Rhythm GI/Abdominal Exam: Normal Bowel Sounds, Soft, Non-Tender, No Organomegaly, No Distention, No Abnormal Bruit, No Mass, Pelvis Stable Extremities: Normal Inspection, Arm Pain (with movement of L shoulder.) Neurological: Reports: No New Focal Deficit Psy/Mental Status: Reports: Alert, Normal Affect, Normal Mood *Q Meaningful Use (DIS) - VTE *Q VTE Criteria *Q: - Stroke *Q Stroke Criteria *Q: - AMI *Q AMI Criteria *Q:
--- NOTE | 2017-06-03 13:50 | CR ---
EXAM DATE: 06/01/17 PATIENT'S AGE: 61 Patient: JENN GRISSOM Facility: [place], [place] : 1955 Study: XRay Chest [id number]/[id number] 10:19:47 AM Ordering Physician: Marquez Benitez Final Report: Indication: Pain and shortness of breath. Comparison: None available. Technique: Single AP view FINDINGS: The cardiomediastinal contours are unremarkable. No suspicion focal or diffuse pulmonary opacities. No definite pneumothorax or pleural effusion. The bones appear grossly unremarkable. IMPRESSION: No acute pulmonary process. Dictated by Javan Canseco MD @ Jun 01 2017 10:38AM (Electronic Signature) Report Signed by Proxy. [facility]
--- NOTE | 2017-06-03 13:57 | CT ---
EXAM DATE: 06/01/17 PATIENT'S AGE: 61 Patient: JENN GRISSOM Facility: [place], [place] Site . Site : 1955 Study: CT Head [id number] 11:21:33 AM Ordering Physician: Marquez Benitez Final Report: INDICATION : Syncope. TECHNIQUE : Noncontrast CT scan of brain. No acute intra or extra-axial hemorrhage. The ventricles and sulci are normal size, shape and configuration. No visualized intracranial mass or additional abnormal attenuation. Bony calvarium is normal. IMPRESSION : No visualized acute intracranial radiographic abnormality. Please note that all CT scans at this facility use dose modulation, iterative reconstruction, and/or weight-based dosing when appropriate to reduce radiation dose to as low as reasonably achievable. Dictated by Jamison Vega MD @ Jun 01 2017 11:39AM (Electronic Signature) Report Signed by Proxy. [facility]
--- NOTE | 2017-06-03 15:02 | CR ---
EXAM DATE: 06/01/17 PATIENT'S AGE: 61 Patient: JENN GRISSOM Facility: [place], [place] Site . Site : 1955 Study: XRay Shoulder Left [id number] 1:54:49 PM Ordering Physician: Campbell Gonzalez Final Report: Left shoulder. 3 VIEWS INDICATION: Pain. IMPRESSION: No visualized fracture. Alignments anatomic. Joint spaces unremarkable. Lateral spurring of the acromion. Dictated by Jamison Vega MD @ Jun 02 2017 2:02PM (Electronic Signature) Report Signed by Proxy. [facility]
[2017-06-03] MEDS ORDERED: Lisinopril 10 MG Tab PO SCH (21:00)
== END 2017-06-03 10:35 | disposition home or self-care (01) ==
LOC: MW.ED 09:42 → MW.MS 12:23
PROVIDERS: ADMIT Internal Medicine; ATTEND Internal Medicine
DX: R07.9 Chest pain, unspecified (principal); I10 Essential (primary) hypertension; I25.10 Atherosclerotic heart disease of native coronary artery without angina pectoris; I25.2 Old myocardial infarction; B19.20 Unspecified viral hepatitis C without hepatic coma; E78.00 Pure hypercholesterolemia, unspecified; K21.9 Gastro-esophageal reflux disease without esophagitis; E10.65 Type 1 diabetes mellitus with hyperglycemia; F17.200 Nicotine dependence, unspecified, uncomplicated; Z79.82 Long term (current) use of aspirin; Z79.4 Long term (current) use of insulin; Z91.14 Patient's other noncompliance with medication regimen; Z95.5 Presence of coronary angioplasty implant and graft
CPT/HCPCS: 36415; 70450; 71010; 73030; 80048; 80053; 81001; 82550; 82553; 82962; 83036; 84484; 85025; 85610; 93005; 96361; 96374; 96375; 99285; A9270; G0378; J1815; J2270; J7040